=== PATIENT | female | born 1960 | race Caucasian/White ===

== ENCOUNTER → 2024-01-24 09:31 | Outpatient (REF) | payer OTHER, SELFPAY | LOC: HWRAD 09:31 | PROVIDERS: ATTENDING PHYSICIAN Obstetrics & Gynecology Gynecology; FAMILY PHYSICIAN Internal Medicine | DX: Z78.0 Asymptomatic menopausal state (principal); Z12.31 Encounter for screening mammogram for malignant neoplasm of breast | CPT/HCPCS: 77063; 77067; 77080 ==

== ENCOUNTER → 2024-10-09 09:02 | Outpatient (REF) | payer OTHER, SELFPAY | LOC: HWRAD 09:02 | PROVIDERS: ATTENDING PHYSICIAN Internal Medicine Critical Care Medicine; FAMILY PHYSICIAN Internal Medicine | DX: J47.9 Bronchiectasis, uncomplicated (principal) | CPT/HCPCS: 71046 ==

== ENCOUNTER → 2024-10-20 06:53 | Outpatient (REF) | payer OTHER, SELFPAY | LOC: RAD 06:53 | PROVIDERS: ATTENDING PHYSICIAN Internal Medicine Critical Care Medicine; FAMILY PHYSICIAN Internal Medicine | DX: J98.4 Other disorders of lung (principal) | CPT/HCPCS: 71250 ==

== ENCOUNTER 2024-11-12 06:18 | Day surgery (SDC) | payer OTHER, SELFPAY ==
[2024-11-11 08:57] LABS: Hematocrit 41.3 % (37.0-47.0); Hemoglobin 13.8 g/dL (12.0-16.0); Mean Corp Hgb Conc. 33.4 g/dL (33.0-37.0); Mean Corpuscular Hgb 29.9 pg (27.0-31.0); Mean Corpuscular Volume 89.6 fL (81.0-99.0); Mean Platelet Volume 9.2 fL (7.4-10.4); Platelet Count 316 10^3/uL (130-400); Red Blood Cell Count 4.61 10^6/uL (4.20-5.40); Red Cell Dist. Width 13.6 % (11.5-14.5); White Blood Cell Count 9.1 10^3/uL (4.8-10.8)
[2024-11-11 09:03] LABS: INR 0.93; PT 12.8 Sec (11.4-14.6)
[2024-11-11 09:05] LABS: APTT 31.1 Sec (23.4-35.0)
[2024-11-11 09:44] LABS: Blood Urea Nitrogen 15 mg/dl (7-17); Calcium 9.6 mg/dl (8.4-10.2); Carbon Dioxide 27 mmol/L (22-30); Chloride 97 mmol/L (98-107); Glucose 88 mg/dl (70-99); Potassium 4.4 mmol/L (3.5-5.1); Sodium 137 mmol/L (135-145); eGFR > 60.00
[2024-11-11 13:33] VITALS: BMI 18.8
[2024-11-12 08:17] VITALS: BMI 19.0
[2024-11-12 08:23] VITALS: BP 98/70; BMI 19.0
[2024-11-12 10:45] VITALS: BP 98/70
[2024-11-12 10:46] VITALS: BP 124/76
[2024-11-12 11:00] VITALS: BP 111/48
[2024-11-12 11:15] VITALS: BP 96/60
[2024-11-12 11:20] VITALS: BP 105/64
== END 2024-11-12 12:10 | disposition home or self-care (01) ==
LOC: GI 06:18
PROVIDERS: ATTENDING PHYSICIAN Internal Medicine Critical Care Medicine; FAMILY PHYSICIAN Internal Medicine
DX: D14.31 Benign neoplasm of right bronchus and lung (principal); R04.2 Hemoptysis; R91.8 Other nonspecific abnormal finding of lung field; J18.9 Pneumonia, unspecified organism
CPT/HCPCS: 31623; 31624; 31627; 31654; 88305; 36415; 71045; 76000; 80048; 85027; 85610; 85730; 87015; 87070; 87077; 87102; 87116; 87153; 87158; 87185; 87205; 88112; 93005; 94640; C1887

== ENCOUNTER → 2024-12-17 08:07 | Outpatient (REF) | payer OTHER, SELFPAY | LOC: RST 08:07 | PROVIDERS: ATTENDING PHYSICIAN Internal Medicine Critical Care Medicine; FAMILY PHYSICIAN Internal Medicine | DX: R04.2 Hemoptysis (principal); J47.9 Bronchiectasis, uncomplicated; R68.89 Other general symptoms and signs; R13.10 Dysphagia, unspecified | CPT/HCPCS: 74230; 92611 ==

== ENCOUNTER → 2025-04-15 08:45 | Outpatient (REF) | payer OTHER, SELFPAY | LOC: HWRAD 08:45 | PROVIDERS: ATTENDING PHYSICIAN Internal Medicine; FAMILY PHYSICIAN Internal Medicine | DX: A31.0 Pulmonary mycobacterial infection (principal) | CPT/HCPCS: 71250 ==

== ENCOUNTER → 2025-10-15 08:28 | Outpatient (REF) | payer MEDICARE, SELFPAY | LOC: HWWDC 08:28 | PROVIDERS: ATTENDING PHYSICIAN Internal Medicine; FAMILY PHYSICIAN Internal Medicine; REFERRING PHYSICIAN Obstetrics & Gynecology Gynecology | DX: J47.9 Bronchiectasis, uncomplicated (principal); A31.0 Pulmonary mycobacterial infection | CPT/HCPCS: 71250; 77063; 77067 ==